=== PATIENT | female | born 1990 | race African-American/Black ===

== ENCOUNTER 2016-08-04 03:32 | Emergency (ER) | payer MEDICAID ==
[~2016-08-04] VITALS: Ht 175.3 cm; Wt 117.9 kg
[~2016-08-04 03:32] MED LIST: MARIJUANA
[2016-08-04] MEDS ORDERED: KETOROLAC TROMETH 60MG/2ML VIAL IM ONE (05:45)
[2016-08-04] MEDS ORDERED: ONDANSETRON HCL 4 MG/2 ML VIAL IM ONE (05:45)
[2016-08-04 06:30] VITALS: BP 136/64
[2016-08-04] MEDS ORDERED: TETANUS-DIPTH-ACEL PERTUSSIS 0.5ML SYRG IM ONE (07:00)
== END 2016-08-04 07:49 | disposition home or self-care (01) ==
LOC: ER 03:33
DX: S02.2XXA Fracture of nasal bones, initial encounter for closed fracture (principal); S00.83XA Contusion of other part of head, initial encounter; K21.9 Gastro-esophageal reflux disease without esophagitis; F17.210 Nicotine dependence, cigarettes, uncomplicated; F12.10 Cannabis abuse, uncomplicated; Z90.89 Acquired absence of other organs; Y08.89XA Assault by other specified means, initial encounter; Y93.89 Activity, other specified; Y99.8 Other external cause status; Y92.89 Other specified places as the place of occurrence of the external cause
CPT/HCPCS: 70450; 70486; 90471; 90715; 96372; 99284; J1885; J2405

== ENCOUNTER 2018-05-14 13:55 | Emergency (ER) | payer MEDICAID ==
[~2018-05-14] VITALS: Ht 175.3 cm; Wt 108.9 kg
[2018-05-14 16:39] VITALS: BP 133/72
== END 2018-05-14 17:29 | disposition home or self-care (01) ==
LOC: ER 13:55
DX: S16.1XXA Strain of muscle, fascia and tendon at neck level, initial encounter (principal); S00.83XA Contusion of other part of head, initial encounter; K21.9 Gastro-esophageal reflux disease without esophagitis; F17.210 Nicotine dependence, cigarettes, uncomplicated; F12.10 Cannabis abuse, uncomplicated; Y04.2XXA Assault by strike against or bumped into by another person, initial encounter; Y93.89 Activity, other specified; Y92.89 Other specified places as the place of occurrence of the external cause; Y99.8 Other external cause status

== ENCOUNTER 2018-08-09 18:27 | Emergency (ER) | payer MEDICAID ==
[~2018-08-09] VITALS: Ht 167.6 cm; Wt 113.4 kg
[2018-08-09 18:30] VITALS: BP 158/108
== END 2018-08-09 18:40 | disposition left against medical advice (07) ==
LOC: EDBD 18:27 → ER 18:29
DX: S61.512A Laceration without foreign body of left wrist, initial encounter (principal); X78.9XXA Intentional self-harm by unspecified sharp object, initial encounter; Y93.89 Activity, other specified; Y92.89 Other specified places as the place of occurrence of the external cause; Y99.8 Other external cause status; Z53.21 Procedure and treatment not carried out due to patient leaving prior to being seen by health care provider

== ENCOUNTER 2018-12-06 17:09 | Emergency (ER) | payer MEDICAID ==
[~2018-12-06] VITALS: Ht 175.3 cm; Wt 108.9 kg
[2018-12-06 17:34] VITALS: BP 114/82
[2018-12-06] MEDS ORDERED: HYDROcodone-ACET 10/325MG TAB PO ONE (19:45)
[2018-12-06] MEDS ORDERED: BACLOFEN 10 MG TAB PO ONE (19:45)
== END 2018-12-06 20:53 | disposition home or self-care (01) ==
LOC: ER 17:12
DX: S00.83XA Contusion of other part of head, initial encounter (principal); M62.838 Other muscle spasm; M54.2 Cervicalgia; F17.210 Nicotine dependence, cigarettes, uncomplicated; F12.10 Cannabis abuse, uncomplicated; Y04.2XXA Assault by strike against or bumped into by another person, initial encounter; Y93.89 Activity, other specified; Y92.89 Other specified places as the place of occurrence of the external cause; Y99.8 Other external cause status
CPT/HCPCS: 70450; 70486; 73090; 73560

== ENCOUNTER 2020-01-16 13:18 | Emergency (ER) | payer MEDICAID ==
[~2020-01-16] VITALS: Ht 172.7 cm; Wt 85.7 kg
[2020-01-16] MEDS ORDERED: methylPREDNISolone SOD SUCC 125 MG/2 ML VL IM ONE (13:30)
[2020-01-16 14:12] LABS: Basophils # (auto) 0 10 ^3/uL (0-0.2); Basophils % (auto) 0.7 % (0.0-2.0); Eosinophils # (auto) 0 10 ^3/uL (0-0.8); Eosinophils % (auto) 0.5 % (0.0-7.0); Hematocrit 39.1 % (36.0-46.0); Lymphocytes % (auto) 18.1 % (10.0-50.0); Mean Corpuscular Hemoglobin 31.7 pg (28.0-32.0); Mean Corpuscular Hgb Conc. 33.1 g/dL (32.0-36.0); Mean Corpuscular Volume 95.8 fL (80.0-100.0); Monocytes # (auto) 0.4 10 ^3/uL (0-1.3); Monocytes % (auto) 7.8 % (0.0-12.0); Neutrophils # (auto) 4.2 10 ^3/uL (1.6-8.6); Neutrophils % (auto) 72.9 % (37.0-80.0); Nucleated Red Blood Cells % 0.1 %; Platelet Count (auto) 359 10^3/uL (140-450); Red Blood Cells 4.08 10^6/uL (4.0-5.20); White Blood Cell 5.7 10^3/uL (4.4-10.8)
[2020-01-16 14:34] LABS: Potassium 4.2 mmol/L (3.5-5.1)
[2020-01-16 14:43] LABS: Albumin 2.9 g/dL (3.4-5.0); Bilirubin, Total 0.2 mg/dL (0.2-1.0); Calcium 8.6 mg/dL (8.5-10.1); Total Protein 6.8 g/dL (6.4-8.2)
[2020-01-16 15:20] VITALS: BP 113/75
== END 2020-01-16 15:21 | disposition home or self-care (01) ==
LOC: EDBD 13:18 → ER 13:18
DX: T78.40XA Allergy, unspecified, initial encounter (principal); L29.9 Pruritus, unspecified; X58.XXXA Exposure to other specified factors, initial encounter
CPT/HCPCS: 36415; 71046; 80053; 85025; 96372; 99284; J2930

== ENCOUNTER 2020-02-10 07:44 | Emergency (ER) | payer MEDICAID ==
[~2020-02-10] VITALS: Ht 175.3 cm; Wt 90.7 kg
[2020-02-10] MEDS ORDERED: SODIUM CHLORIDE 0.9% 1,000 ML IV ONE (08:04)
[2020-02-10] MEDS ORDERED: SODIUM CHLORIDE 0.9% 1,000 ML IVB ONE (08:04)
[2020-02-10] MEDS ORDERED: diphenhdrAMINE HCL 50 MG/1 ML VL ONE (08:13)
[2020-02-10] MEDS ORDERED: LORazepam 2MG/ML-1ML VIAL IV ONE ×2 (08:15→08:30)
[2020-02-10] MEDS ORDERED: diphenhdrAMINE HCL 50 MG/1 ML VL IV ONE (08:30)
[2020-02-10 09:33] LABS: Basophils # (auto) 0 10 ^3/uL (0-0.2); Basophils % (auto) 0.7 % (0.0-2.0); Eosinophils # (auto) 0 10 ^3/uL (0-0.8); Eosinophils % (auto) 0.4 % (0.0-7.0); Hematocrit 36.9 % (36.0-46.0); Lymphocytes # (auto) 0.8 10 ^3/uL (0.4-5.4); Lymphocytes % (auto) 13.8 % (10.0-50.0); Mean Corpuscular Hemoglobin 30.7 pg (28.0-32.0); Mean Corpuscular Hgb Conc. 32.5 g/dL (32.0-36.0); Mean Corpuscular Volume 94.4 fL (80.0-100.0); Monocytes # (auto) 0.3 10 ^3/uL (0-1.3); Monocytes % (auto) 5.8 % (0.0-12.0); Neutrophils # (auto) 4.6 10 ^3/uL (1.6-8.6); Neutrophils % (auto) 79.3 % (37.0-80.0); Nucleated Red Blood Cells % 0.2 %; Platelet Count (auto) 354 10^3/uL (140-450); Red Blood Cells 3.91 10^6/uL (4.0-5.20); Red Cell Distribution Width 15.9 % (11.8-14.3); White Blood Cell 5.8 10^3/uL (4.4-10.8)
[2020-02-10 09:45] LABS: Magnesium 1.7 mg/dL (1.6-2.6)
[2020-02-10 09:46] LABS: Albumin 2.6 g/dL (3.4-5.0); BUN/Creatinine Ratio 8.6; Calcium 7.7 mg/dL (8.5-10.1)
[2020-02-10 09:48] LABS: Bilirubin, Total 0.5 mg/dL (0.2-1.0); Total Protein 6.6 g/dL (6.4-8.2)
[2020-02-10 10:00] VITALS: BP 143/94
[2020-02-10] MEDS ORDERED: POTASSIUM EFFERVESENT TAB 25 MEQ PO ONE (11:15)
[2020-02-10 11:46] LABS: Urine Bacteria NONE SEEN /hpf (None Seen); Urine Blood Negative /uL (Negative); Urine Hyaline Cast FEW /lpf (0 - 2); Urine Mucus FEW (None Seen); Urine Specific Gravity 1.024 (1.001-1.035); Urine WBC 1 /hpf (0 - 5)
[2020-02-10 11:53] LABS: Amphetamine Screen, Urine POSITIVE (NEGATIVE); Barbiturate Scree,Urine NEGATIVE (NEGATIVE); Benzodiazephine Screen, Urine NEGATIVE (NEGATIVE); Cannabinoid Screen, Urine POSITIVE (NEGATIVE); Cocaine Screen, Urine POSITIVE (NEGATIVE); Opiate Scree,Urine NEGATIVE (NEGATIVE); Phencyclidine Screen, Urine NEGATIVE (NEGATIVE)
== END 2020-02-10 12:02 | disposition home or self-care (01) ==
LOC: ER 07:44
DX: G92 Toxic encephalopathy (principal); F14.10 Cocaine abuse, uncomplicated; F15.10 Other stimulant abuse, uncomplicated; E87.6 Hypokalemia; E44.0 Moderate protein-calorie malnutrition; F10.129 Alcohol abuse with intoxication, unspecified; Y90.9 Presence of alcohol in blood, level not specified
CPT/HCPCS: 36415; 71045; 80053; 80307; 80320; 81001; 83690; 83735; 84443; 84702; 85025; 93005; 96361; 96374; 96375; 99285; J1200; J2060; J7030

== ENCOUNTER → 2020-02-16 | Emergency (ER) | payer MEDICAID ==
[~2020-02-16] VITALS: Ht 175.3 cm; Wt 90.7 kg
[~2020-02-16] MED LIST changes: +SODIUM CHLORIDE 0.9% 1,000 ML IV ONE
[2020-02-16 07:38] VITALS: BP 129/85
[2020-02-16 08:17] LABS: Urine Bacteria NONE SEEN /hpf (None Seen); Urine Blood Negative /uL (Negative); Urine Specific Gravity 1.021 (1.001-1.035); Urine WBC 1 /hpf (0 - 5)
[2020-02-16 08:32] LABS: Alcohol, Urine < 3.0 mg/dL (0-10); Amphetamine Screen, Urine POSITIVE (NEGATIVE); Barbiturate Scree,Urine NEGATIVE (NEGATIVE); Benzodiazephine Screen, Urine NEGATIVE (NEGATIVE); Cannabinoid Screen, Urine POSITIVE (NEGATIVE); Cocaine Screen, Urine NEGATIVE (NEGATIVE); Opiate Scree,Urine NEGATIVE (NEGATIVE); Phencyclidine Screen, Urine NEGATIVE (NEGATIVE)
== END | disposition home or self-care (01) ==
LOC: ER 07:27
DX: E86.0 Dehydration (principal); R10.84 Generalized abdominal pain; R11.2 Nausea with vomiting, unspecified; F41.9 Anxiety disorder, unspecified; F17.210 Nicotine dependence, cigarettes, uncomplicated; Z90.89 Acquired absence of other organs
CPT/HCPCS: 80307; 81001; 81025

== ENCOUNTER → 2020-04-05 | Emergency (ER) | payer MEDICAID ==
[~2020-04-05] VITALS: Ht 175.3 cm; Wt 90.7 kg
[~2020-04-05] MED LIST changes: +ALPRAZolam 0.5 MG TAB PO PRN; +LORazepam 2MG/ML-1ML VIAL IV ONE; +POTASSIUM EFFERVESENT TAB 25 MEQ PO ONE; -SODIUM CHLORIDE 0.9% 1,000 ML IV ONE; +SODIUM CHLORIDE 0.9% 1,000 ML IVB ONE; +hydrOXYzine 25 MG TAB or CAP PO SCH; +risperiDONE 1 MG TAB PO SCH
[2020-04-05 23:04] LABS: Basophils # (auto) 0.1 10 ^3/uL (0-0.2); Basophils % (auto) 0.8 % (0.0-2.0); Eosinophils # (auto) 0.1 10 ^3/uL (0-0.8); Eosinophils % (auto) 1.4 % (0.0-7.0); Hematocrit 36.2 % (36.0-46.0); Lymphocytes # (auto) 2.3 10 ^3/uL (0.4-5.4); Lymphocytes % (auto) 29.3 % (10.0-50.0); Mean Corpuscular Hemoglobin 29.4 pg (28.0-32.0); Mean Corpuscular Hgb Conc. 33.2 g/dL (32.0-36.0); Mean Corpuscular Volume 88.5 fL (80.0-100.0); Monocytes # (auto) 0.4 10 ^3/uL (0-1.3); Monocytes % (auto) 5.8 % (0.0-12.0); Neutrophils # (auto) 4.9 10 ^3/uL (1.6-8.6); Neutrophils % (auto) 62.7 % (37.0-80.0); Nucleated Red Blood Cells % 0.2 %; Platelet Count (auto) 392 10^3/uL (140-450); Red Cell Distribution Width 15.3 % (11.8-14.3); White Blood Cell 7.8 10^3/uL (4.4-10.8)
[2020-04-05 23:21] LABS: Calcium 8.8 mg/dL (8.5-10.1); Magnesium 1.8 mg/dL (1.6-2.6); Potassium 3.3 mmol/L (3.5-5.1)
[2020-04-05 23:24] LABS: Albumin 3.1 g/dL (3.4-5.0); BUN/Creatinine Ratio 7.5
[2020-04-05 23:27] LABS: Bilirubin, Total 0.4 mg/dL (0.2-1.0); Total Protein 6.8 g/dL (6.4-8.2)
[2020-04-06 10:11] LABS: Urine Bacteria MANY /hpf (None Seen); Urine Blood Negative /uL (Negative); Urine Mucus FEW (None Seen); Urine Specific Gravity 1.023 (1.001-1.035); Urine WBC 105 /hpf (0 - 5)
[2020-04-06 10:36] LABS: Alcohol, Urine < 3.0 mg/dL (0-10); Amphetamine Screen, Urine POSITIVE (NEGATIVE); Barbiturate Scree,Urine NEGATIVE (NEGATIVE); Benzodiazephine Screen, Urine NEGATIVE (NEGATIVE); Cannabinoid Screen, Urine POSITIVE (NEGATIVE); Cocaine Screen, Urine POSITIVE (NEGATIVE); Opiate Scree,Urine NEGATIVE (NEGATIVE); Phencyclidine Screen, Urine NEGATIVE (NEGATIVE)
--- NOTE | 2020-04-06 12:00 | NUR ---
Assessment Unable to assess patient due to not being medical stable. Per bedside nurse patient has a 5051 hold. Provided bedside nurse with resource for patient.
[2020-04-06 20:45] VITALS: BP 121/84
== END | disposition home or self-care (01) ==
LOC: ER 20:26
DX: R45.851 Suicidal ideations (principal); F32.9 Major depressive disorder, single episode, unspecified; F17.210 Nicotine dependence, cigarettes, uncomplicated; F12.10 Cannabis abuse, uncomplicated; F15.10 Other stimulant abuse, uncomplicated; Z59.0 Homelessness
CPT/HCPCS: 36415; 80053; 80307; 80320; 81001; 83735; 84702; 85025; 87426

== ENCOUNTER 2020-06-02 07:41 | Emergency (ER) | payer MEDICAID ==
[~2020-06-02] VITALS: Ht 175.3 cm; Wt 86.2 kg
[~2020-06-02 07:41] MED LIST changes: -ALPRAZolam 0.5 MG TAB PO PRN; -LORazepam 2MG/ML-1ML VIAL IV ONE; -POTASSIUM EFFERVESENT TAB 25 MEQ PO ONE; -SODIUM CHLORIDE 0.9% 1,000 ML IVB ONE; -hydrOXYzine 25 MG TAB or CAP PO SCH; -risperiDONE 1 MG TAB PO SCH
[2020-06-02 07:48] VITALS: BP 125/73
[2020-06-02] MEDS ORDERED: EPINEPHrine HCL 1 MG/1 ML AMP SC ONE (08:15)
[2020-06-02] MEDS ORDERED: methylPREDNISolone SOD SUCC 125 MG/2 ML VL IM ONE (08:15)
== END 2020-06-02 09:02 | disposition home or self-care (01) ==
LOC: ER 07:41
DX: T78.40XA Allergy, unspecified, initial encounter (principal); F17.210 Nicotine dependence, cigarettes, uncomplicated; F12.10 Cannabis abuse, uncomplicated; F15.10 Other stimulant abuse, uncomplicated; X58.XXXA Exposure to other specified factors, initial encounter; Z59.0 Homelessness
CPT/HCPCS: 96372; 99284; J0171; J2930

== ENCOUNTER 2021-01-08 17:14 | Emergency (ER) | payer OTHER ==
[~2021-01-08] VITALS: Ht 172.7 cm; Wt 70.3 kg
[2021-01-08] MEDS ORDERED: LORazepam 2MG/ML-1ML VIAL IM ONE (17:30)
[2021-01-08] MEDS ORDERED: SODIUM CHLORIDE 0.9% 1,000 ML IVB ONE (17:30)
[2021-01-08] MEDS ORDERED: HALOPERIDOL LACTATE 5 MG/ML INJ VIAL IM ONE (17:30)
[2021-01-08] MEDS ORDERED: diphenhdrAMINE HCL 50 MG/1 ML VL IM ONE (17:30)
[2021-01-08 21:03] LABS: Basophils # (auto) 0.1 10 ^3/uL (0-0.2); Basophils % (auto) 0.6 % (0.0-2.0); Eosinophils # (auto) 0 10 ^3/uL (0-0.8); Hematocrit 40.7 % (36.0-46.0); Hemoglobin 14.2 g/dL (12.2-16.2); Lymphocytes # (auto) 0.9 10 ^3/uL (0.4-5.4); Lymphocytes % (auto) 9.8 % (10.0-50.0); Mean Corpuscular Hemoglobin 29.8 pg (28.0-32.0); Mean Corpuscular Hgb Conc. 34.9 g/dL (32.0-36.0); Mean Corpuscular Volume 85.2 fL (80.0-100.0); Monocytes # (auto) 0.5 10 ^3/uL (0-1.3); Monocytes % (auto) 5.7 % (0.0-12.0); Neutrophils # (auto) 8.1 10 ^3/uL (1.6-8.6); Neutrophils % (auto) 83.9 % (37.0-80.0); Nucleated Red Blood Cells % 0.1 %; Red Blood Cells 4.77 10^6/uL (4.0-5.20); Red Cell Distribution Width 14.4 % (11.8-14.3); White Blood Cell 9.6 10^3/uL (4.4-10.8)
[2021-01-08 21:15] LABS: Albumin 4.1 g/dL (3.4-5.0); Anion Gap 7 (5-15); Blood Alcohol < 3.0 mg/dL (0-5); Blood Urea Nitrogen 15 mg/dL (7-18); Calcium 9.4 mg/dL (8.5-10.1); Carbon Dioxide 23 mmol/L (21-32); Chloride 106 mmol/L (98-107); Glucose 53 mg/dL (74-106); Potassium 4.7 mmol/L (3.5-5.1); Sodium 136 mmol/L (136-145)
[2021-01-08 21:18] LABS: Alanine Aminotransferase 21 U/L (13-56); Alkaline Phosphatase 55 U/L (45-117); Aspartate Aminotransferase 43 U/L (15-37); BUN/Creatinine Ratio 13.2; Bilirubin, Total 0.7 mg/dL (0.2-1.0); GFR African American 71 mL/min; GFR Non-African American 59 mL/min; Total Protein 8.3 g/dL (6.4-8.2)
[2021-01-09 10:01] VITALS: BP 111/75
[2021-01-09 11:32] LABS: Alcohol, Urine < 3.0 mg/dL (0-10); Amphetamine Screen, Urine POSITIVE (NEGATIVE); Barbiturate Scree,Urine NEGATIVE (NEGATIVE); Benzodiazephine Screen, Urine NEGATIVE (NEGATIVE); Cannabinoid Screen, Urine POSITIVE (NEGATIVE); Cocaine Screen, Urine POSITIVE (NEGATIVE); Opiate Scree,Urine NEGATIVE (NEGATIVE); Phencyclidine Screen, Urine NEGATIVE (NEGATIVE)
== END 2021-01-09 21:56 | disposition left against medical advice (07) ==
LOC: ER 17:14 → EDUNIT# 17:14 → EDBD 17:14 → ER 01-09 21:56
DX: R41.82 Altered mental status, unspecified (principal); R00.2 Palpitations; F14.10 Cocaine abuse, uncomplicated; F10.920 Alcohol use, unspecified with intoxication, uncomplicated; F15.10 Other stimulant abuse, uncomplicated; Y90.9 Presence of alcohol in blood, level not specified; Z90.89 Acquired absence of other organs; Z53.29 Procedure and treatment not carried out because of patient's decision for other reasons; Z59.0 Homelessness
CPT/HCPCS: 36415; 80053; 80307; 80320; 81025; 82962; 85025; 85049; 93005; 96360; 96372; 99284; J1200; J1630; J2060; J7030

== ENCOUNTER 2021-01-28 05:33 | Emergency (ER) | payer OTHER ==
[~2021-01-28] VITALS: Ht 175.3 cm; Wt 63.5 kg
[2021-01-28 06:19] LABS: Basophils # (auto) 0.1 10 ^3/uL (0-0.2); Basophils % (auto) 0.9 % (0.0-2.0); Eosinophils # (auto) 0 10 ^3/uL (0-0.8); Hematocrit 37.8 % (36.0-46.0); Lymphocytes # (auto) 1.4 10 ^3/uL (0.4-5.4); Mean Corpuscular Hemoglobin 28.7 pg (28.0-32.0); Mean Corpuscular Hgb Conc. 34.5 g/dL (32.0-36.0); Mean Corpuscular Volume 83.3 fL (80.0-100.0); Monocytes # (auto) 0.4 10 ^3/uL (0-1.3); Neutrophils # (auto) 4.6 10 ^3/uL (1.6-8.6); Neutrophils % (auto) 71.1 % (37.0-80.0); Nucleated Red Blood Cells % 0.1 %; Red Blood Cells 4.54 10^6/uL (4.0-5.20); Red Cell Distribution Width 14.4 % (11.8-14.3); White Blood Cell 6.4 10^3/uL (4.4-10.8)
[2021-01-28 06:30] LABS: Alanine Aminotransferase 23 U/L (13-56); Anion Gap 13 (5-15); Aspartate Aminotransferase 16 U/L (15-37); BUN/Creatinine Ratio 10.8; Blood Urea Nitrogen 11 mg/dL (7-18); Calcium 9.3 mg/dL (8.5-10.1); Carbon Dioxide 17 mmol/L (21-32); Chloride 110 mmol/L (98-107); GFR African American 81 mL/min; GFR Non-African American 67 mL/min; Glucose 100 mg/dL (74-106); Potassium 3.3 mmol/L (3.5-5.1); Sodium 140 mmol/L (136-145)
[2021-01-28 06:35] LABS: Alkaline Phosphatase 59 U/L (45-117); Bilirubin, Total 1.4 mg/dL (0.2-1.0); Total Protein 7.9 g/dL (6.4-8.2)
[2021-01-28] MEDS ORDERED: LORazepam 0.5 MG TAB ONE (07:56)
[2021-01-28 08:00] LABS: Urine Bacteria NONE SEEN /hpf (None Seen); Urine Blood Negative /uL (Negative); Urine Mucus FEW (None Seen); Urine WBC 2 /hpf (0 - 5)
[2021-01-28] MEDS ORDERED: LORazepam 0.5 MG TAB PO ONE (08:00)
[2021-01-28 08:17] LABS: Amphetamine Screen, Urine POSITIVE (NEGATIVE); Barbiturate Scree,Urine NEGATIVE (NEGATIVE); Benzodiazephine Screen, Urine POSITIVE (NEGATIVE); Cannabinoid Screen, Urine POSITIVE (NEGATIVE); Cocaine Screen, Urine POSITIVE (NEGATIVE); Phencyclidine Screen, Urine NEGATIVE (NEGATIVE)
[2021-01-28 08:24] LABS: Opiate Scree,Urine NEGATIVE (NEGATIVE)
[2021-01-28 08:40] VITALS: BP 124/78
== END 2021-01-28 08:30 | disposition home or self-care (01) ==
LOC: ER 05:33
DX: R07.89 Other chest pain (principal); F41.9 Anxiety disorder, unspecified; Z90.49 Acquired absence of other specified parts of digestive tract; Z79.899 Other long term (current) drug therapy
CPT/HCPCS: 36415; 80053; 80307; 81001; 83880; 84484; 84702; 85025; 93005

== ENCOUNTER 2021-02-10 02:02 | Emergency (ER) | payer OTHER ==
[~2021-02-10] VITALS: Ht 175.3 cm; Wt 72.6 kg
[2021-02-10 02:09] VITALS: BP 148/82
[2021-02-10] MEDS ORDERED: LORazepam 0.5 MG TAB PO ONE (02:15)
== END 2021-02-10 05:51 | disposition left against medical advice (07) ==
LOC: ER 02:02
DX: F41.0 Panic disorder [episodic paroxysmal anxiety] (principal); F15.10 Other stimulant abuse, uncomplicated; F12.10 Cannabis abuse, uncomplicated; F17.210 Nicotine dependence, cigarettes, uncomplicated; Z76.0 Encounter for issue of repeat prescription; Z90.49 Acquired absence of other specified parts of digestive tract; Z59.0 Homelessness

== ENCOUNTER 2023-02-15 17:18 | Emergency (ER) | payer MEDICAID ==
[~2023-02-15] VITALS: Ht 175.3 cm; Wt 68.5 kg
[2023-02-15 17:22] VITALS: BP 148/100; PULSE 109; RESP 18; O2SAT 100
== END 2023-02-15 21:43 | disposition left against medical advice (07) ==
LOC: ER 17:18
DX: R11.2 Nausea with vomiting, unspecified (principal); Z53.21 Procedure and treatment not carried out due to patient leaving prior to being seen by health care provider

== ENCOUNTER 2025-05-14 15:53 | Emergency (ER) | payer MEDICAID, OTHER ==
[~2025-05-14] VITALS: Ht 177.8 cm; Wt 63.6 kg
[2025-05-14 16:35] VITALS: PULSE 90; RESP 18; O2SAT 99
--- NOTE | 2025-05-14 16:46 | ED.PDOC ---
Altered Mental Status HPI Comments 34 y.o female presents to the ED via EMS for an evaluation of AMS. EMS reports, per family on scene, patient was on the floor acting erratic and yelling spontaneously. Family mention patient has a history of meth use in the past and were unsure if she had any today or recently. Brother reports patient has been seen at the hospital multiple times due to behavioral issues but gets discharged or elopes with no definite diagnose. Patient is alert and oriented x 4 but is not answer any questions. Chief Complaint: ALOC Time Seen by MD: 16:40 Primary Care Provider: SO Reviewed Notes: Nurses Notes, Landfill Attendant Notes, Medications, Allergies Allergies: Coded Allergies: NO KNOWN ALLERGIES (Unverified , 01/20/23) Home Meds Reported Medications [Marijuana] No Conflict Check 02/27/12 Information Source: Emergency Med Personnel Mode of Arrival: EMS Severity: Moderate Timing: Hours Duration: Since onset Quality: Change in Behavior Recent: Other History of: None Associated Signs and Symptoms: Other Past Medical History PAST MEDICAL HISTORY: Anxiety Surgical History: Appendectomy SUPERVISOR RESIDENTIAL History: No Pertinent SUPERVISOR RESIDENTIAL History Family History Family History: Unobtainable Social History Smoker: Cigarettes, Less Than 1 Pack/Day Alcohol: Denies ETOH Use Drugs: Marijuana, Methamphetamine Lives In: Homeless Constitutional: denies: chills, diaphoresis, fatigue, fever, malaise, sweats, weakness, others EENTM: denies: blurred vision, double vision, ear bleeding, ear discharge, ear drainage, ear pain, ear ringing, eye pain, eye redness, hearing loss, mouth pain, mouth swelling, nasal discharge, nose bleeding, nose congestion, nose pain, photophobia, tearing, throat pain, throat swelling, voice changes, others Respiratory: denies: cough, hemoptysis, orthopnea, SOB at rest, shortness of breath, SOB with excertion, stridor, wheezing, others Cardiovascular: reports: chest pain; denies: dizzy spells, diaphoresis, Dyspnea on exertion, edema, irregular heart beat, left arm pain, lightheadedness, palpitations, PND, syncope, others Gastrointestinal: denies: abdomen distended, abdominal pain, blood streaked bowels, constipated, diarrhea, dysphagia, difficulty swallowing, hematemesis, melena, nausea, poor appetite, poor fluid intake, rectal bleeding, rectal pain, vomiting, others Genitourinary: denies: abnormal vagina bleeding, burning, dyspareunia, dysuria, flank pain, frequency, hematuria, incontinence, pain, , vagina dis charge, urgency, others Neurological: denies: dizziness, fainting, headache, left sided numbness, left sided weakness, numbness, paresthesia, pre-existing deficit, right sided numbness, right sided weakness, seizure, speech problems, tingling, tremors, weakness, others Musculoskeletal: denies: back pain, gout, joint pain, joint swelling, muscle pain, muscle stiffness, neck pain, others Integumetry: denies: bruises, change in color, change in hair/nails, dryness, laceration, lesions, lumps, rash, wounds, others Allergic/Immunocompromised: denies: Difficulty Healing, Frequent Infections, Hives, Itching, others Hematologic/Lymphatic: denies: anemia, blood clots, easy bleeding, easy bruising, swollen glands, others Endocrine: denies: excessive hunger, excessive sweating, excessive thirst, excessive urination, flushing, intolerance to cold, intolerance to heat, unexplained weight gain, unexplained weight loss, others Psychiatric: denies: anxiety, bipolar disorder, depression, hopeless, panic disorder, schizophrenia, sleepless, suicidal, others All Other Systems: Reviewed and Negative Physical Exam General Appearance: No Apparent Distress, Normal HEENT: Normal ENT Inspection, Pharynx Normal, TMs Normal Neck: Full Range of Motion, Non-Tender, Normal, Normal Inspection Respiratory: Chest Non-Tender, Lungs Clear, No Accessory Muscle Use, No Respiratory Distress, Normal Breath Sounds Cardiovascular: No Edema, No JVD, No Murmur, No Gallop, Normal Peripheral Pulses, Regular Rate/Rhythm Breast Exam: Deferred Gastrointestinal: No Organomegaly, Non Tender, No Pulsatile Mass, Normal Bowel Sounds, Soft Genitalia: Deferred Pelvic: Deferred Rectal: Deferred Extremities: No calf tenderness, Normal capillary refill, Normal inspection, No rmal range of motion, Non-tender, No pedal edema Musculoskeletal : Apperance: Normal Neurologic: Alert, maple products maker II-XII nml as Tested, No Motor Deficits, Normal Affect, Normal Mood, No Sensory Deficits Cerebellar Function: Normal Reflexes: Normal Skin: Dry, Normal Color, Warm Lymphatic: No Adenopathy Was a procedure done? Was a procedure done?: No Differential Diagnosis (ALOC) Differential Diagnosis: Dehydration, Hypoglycemia, Hypoxemia, Drug Overdose, ETOH Intoxication X-Ray, Labs, Meds, VS Vital Signs Date Time Temp Pulse Resp B/P (MAP) Pulse Ox O2 Delivery O2 Flow Rate FiO2 05/14/25 19:20 98.0 83 15 112/91 (98) 99 98.0 05/14/25 19:20 Room Air* 0 21 05/14/25 18:00 88 17 132/97 (109) 99 05/14/25 16:54 97 Room Air* 0 21 05/14/25 16:35 90 18 99 Room Air* 0 21 05/14/25 16:33 98.9 98 17 126/93 (104) 99 98.9 05/14/25 15:53 98.0 110 22 98 98.0 Lab Test 05/14/25 21:36 05/14/25 21:35 05/14/25 17:06 05/14/25 16:43 Range/Units Urine Opiates Screen Neg NEGATIVE Urine Fentanyl Screen Neg NEGATIVE Urine Barbiturates Screen Neg NEGATIVE Urine Phencyclidine Screen Neg NEGATIVE Urine Amphetamines Screen Pos NEGATIVE Urine Benzodiazepines Screen Neg NEGATIVE Urine Cocaine Screen Neg NEGATIVE Urine Cannabinoids Screen Pos NEGATIVE Urine Color Yellow Yellow Urine Clarity Clear Clear Urine pH 8.0 5.0-9.0 Urine Specific [place] 1.025 1.001-1.035 Urine Protein Trace H Negative Urine Ketones Negative Negative Urine Blood Negative Negative /uL Urine Nitrite Negative Negative Urine Bilirubin Negative Negative Urine Urobilinogen 8 H Negative mg/dL Urine Leukocyte Esterase Negative Negative /uL Urine RBC 1 0 - 4 /hpf Urine Microscopic WBC 3 0-5 /HPF Urine Squamous Epithelial Cells Few <5 /hpf Urine Bacteria None seen None Seen /hpf Urine Glucose Normal Normal mg/dL White Blood Count 8.1 4.4-10.8 10^3/uL Red Blood Count 4.44 4.0-5.20 10^6/uL Hemoglobin 12.2 12.2-16.2 g/dL Hematocrit 37.4 36.0-46.0 % Mean Corpuscular Volume 84.3 80.0-100.0 fL Mean Corpuscular Hemoglobin 27.5 L 28.0-32.0 pg Mean Corpuscular Hemoglobin Concent 32.6 32.0-36.0 g/dL Red Cell Distribution Width 15.6 H 11.8-14.3 % Platelet Count 326 140-450 10^3/uL Mean Platelet Volume 7.3 6.9-10.8 fL Neutrophils (%) (Auto) 80.1 H 37.0-80.0 % Lymphocytes (%) (Auto) 13.3 10.0-50.0 % Monocytes (%) (Auto) 5.6 0.0-12.0 % Eosinophils (%) (Auto) 0.5 0.0-7.0 % Basophils (%) (Auto) 0.5 0.0-2.0 % Neutrophils # (Auto) 6.5 1.6-8.6 10 ^3/uL Lymphocytes # (Auto) 1.1 0.4-5.4 10 ^3/uL Monocytes # (Auto) 0.5 0-1.3 10 ^3/uL Eosinophils # (Auto) 0 0-0.8 10 ^3/uL Basophils # (Auto) 0 0-0.2 10 ^3/uL Nucleated Red Blood Cells 0.0 % Sodium Level 142 136-145 mmol/L Potassium Level 3.5 3.5-5.1 mmol/L Chloride Level 104 98-107 mmol/L Carbon Dioxide Level 27 20-31 mmol/L Anion Gap 11 5-15 Blood Urea Nitrogen 11 9-23 mg/dL Creatinine 0.93 0.550-1.02 mg/dL Glomerular Filtration Rate Calc 82 >90 mL/min BUN/Creatinine Ratio 11.8 10.0-20.0 Serum Glucose 82 74-106 mg/dL Lactic Acid Level 1.4 0.4-2.0 mmol/L Calcium Level 9.9 8.7-10.4 mg/dL Ammonia 19 11-32 umol/L Lipase 39 12-53 U/L POC Glucose 108 H 70-106 mg/dl X-Ray, Labs, Meds, VS Comment Imaging was reviewed by this provider, there is no obvious pathological or acute disease process. Pending radiology review Labs were reviewed by this provider, positive amphetamine and THC Vital signs reviewed by this provider, clinically stable Time of 1ST Reevaluation: 16:43 Reevaluation 1ST: Unchanged Patient Education/Counseling: Diagnosis, Treatment, Prognosis, Need For Follow Up (Follow up with PCP next available appointment) Family Education/Counseling: No Family Present SEPSIS Sepsis Screen Date sepsis recognized/suspect: May 14, 2025 Time Sepsis recognized/suspect: 1553 Recent Procedure: No On Antibiotic Therapy: No Respiratory Rate >20: Yes Heart Rate >90: Yes Temp<36 C (96.8 F) or >38.3 C: No SBP <90 or MAP <65 mmHG: No New Acute Mental Status Change: No Is the patient on CPAP, BIPAP,: No Physician Orders Head Without Contrast (05/14/25 16:38) Vital Signs Date Time Temp Pulse Resp B/P (MAP) Pulse Ox O2 Delivery O2 Flow Rate FiO2 05/14/25 19:20 98.0 83 15 112/91 (98) 99 98.0 05/14/25 19:20 Room Air* 0 21 05/14/25 18:00 88 17 132/97 (109) 99 05/14/25 16:54 97 Room Air* 0 21 05/14/25 16:35 90 18 99 Room Air* 0 21 05/14/25 16:33 98.9 98 17 126/93 (104) 99 98.9 05/14/25 15:53 98.0 110 22 98 98.0 Laboratory Tests Test 05/14/25 17:06 Lactic Acid Level 1.4 mmol/L (0.4-2.0) White Blood Count 8.1 10^3/uL (4.4-10.8) Departure 1 Departure Time of Disposition: 22:17 Impression: Primary Impression: Methamphetamine abuse Additional Impression: Marijuana user Disposition: 01 HOME / SELF CARE / HOMELESS Condition: Fair Discharged With: Self Critical Care Note Critical Care Time?: No Stability Stability form required: No I personally scribed for GÉNESIS YANEZ ([facility]) on 05/14/25 at 16:46. Electronically submitted by Yvonne Henry ([facility]). GÉNESIS YANEZ May 14, 2025 16:46
--- NOTE | 2025-05-14 17:25 | DVH ---
EXAM DESCRIPTION: CT HEAD WITHOUT CONTRAST CLINICAL HISTORY: aloc COMPARISON: None TECHNIQUE: Noncontrast CT head was performed. Coronal MPR images were generated. CTDI/ DLP = / . Dose reduction technique with one or more of the following methods was performed: Automated exposure control, adjustment of the mA and/or kV according to patient size, use of iterative reconstruction technique. FINDINGS: No evidence of acute intracranial hemorrhage. No mass effect. No extra-axial collections of fluid or blood. The brain is normal in attenuation. The ventricles and sulci are normal in size for age. Clear basal cisterns. The calvarium is intact. The soft tissues are unremarkable. The paranasal sinuses and mastoid air cells are clear. IMPRESSION: 1. No acute intracranial findings.
[2025-05-14 17:28] LABS: Hematocrit 37.4 % (36.0-46.0); Hemoglobin 12.2 g/dL (12.2-16.2); Mean Corpuscular Hemoglobin 27.5 pg (28.0-32.0); Mean Corpuscular Volume 84.3 fL (80.0-100.0); Nucleated Red Blood Cells % 0.0 %
[2025-05-14 17:40] LABS: Chloride 104 mmol/L (98-107); Potassium 3.5 mmol/L (3.5-5.1); Sodium 142 mmol/L (136-145)
[2025-05-14 17:41] LABS: Anion Gap 11 (5-15); Calcium 9.9 mg/dL (8.7-10.4); Carbon Dioxide 27 mmol/L (20-31)
[2025-05-14 17:46] LABS: BUN/Creatinine Ratio 11.8 (10.0-20.0); Blood Urea Nitrogen 11 mg/dL (9-23); Glucose 82 mg/dL (74-106)
[2025-05-14 17:47] LABS: Lipase 39 U/L (12-53)
[2025-05-14 21:56] LABS: Urine Protein, UAD TRACE (Negative)
[2025-05-14 22:00] VITALS: BP 118/82; PULSE 82; RESP 16; TEMP 97.7; O2SAT 99
[2025-05-14 22:01] LABS: Amphetamine Screen, Urine Pos (NEGATIVE); Barbiturate Scree,Urine Neg (NEGATIVE); Benzodiazephine Screen, Urine Neg (NEGATIVE); Cannabinoid Screen, Urine Pos (NEGATIVE); Cocaine Screen, Urine Neg (NEGATIVE); Opiate Scree,Urine Neg (NEGATIVE); Phencyclidine Screen, Urine Neg (NEGATIVE)
== END 2025-05-14 22:19 | disposition home or self-care (01) ==
LOC: EDBD 15:53 → ER 15:56
DX: F12.90 Cannabis use, unspecified, uncomplicated (principal); F15.10 Other stimulant abuse, uncomplicated; F17.210 Nicotine dependence, cigarettes, uncomplicated; F41.9 Anxiety disorder, unspecified; Z59.00 Homelessness unspecified; Z90.49 Acquired absence of other specified parts of digestive tract
CPT/HCPCS: 36415; 70450; 80048; 80307; 81001; 82140; 82947; 82962; 83605; 83690; 85025